=== PATIENT | male | born 1945 | race Caucasian/White ===

== ENCOUNTER → 2016-10-18 | Outpatient (CLI) | payer MEDICARE ==
[2016-10-18 12:14] LABS: Appearance,Urine Clear (Clear); Bilirubin,Urine Negative (Negative); Glucose,Urine (UA) 4+ (Negative); Ketones,Urine Negative (Negative); Leukocyte Esterase,Urine Negative (Negative); Nitrite,Urine Negative (Negative); PH, Urine 5.5 (5.0-8.0); Protein,Urine Trace (Negative); Specific Gravity,Urine 1.012 (1.001-1.035); UA Billing (MACRO vs. MICRO) CHEM; Urobilinogen,Urine <2.0 mg/dL (<2.0)
[2016-10-18 12:22] LABS: Anisocytosis Slight; Basophils % (A) 1 %; CH 22.5; CHCM 31.5; Eosinophils # (A) 0.2 k/uL (0-0.7); Eosinophils % (A) 3 %; HCT 50.5 % (39.0-53.0); HDW 4.24; HGB 15.4 gm/dL (13.0-17.5); Hypochromasia Marked; Luc # (Auto) 0.21; Luc % (Auto) 3; Lymphocytes # (A) 0.8 k/uL (1.0-4.8); Lymphocytes % (A) 12 %; MCH 22.1 pg (25.0-35.0); MCHC 30.5 g/dL (31.0-37.0); MCV 72.4 fL (80.0-100.0); Mean Platelet Volume 7.6; Microcytosis Moderate; Monocytes # (A) 0.2 k/uL (0-1.0); Monocytes % (A) 3 %; Neutrophils # (A) 5.4 k/uL (1.3-7.7); Neutrophils % (A) 78 %; Poikilocytosis Moderate; RBC 6.98 m/uL (4.30-5.90); RDW 18.6 % (11.5-15.5); WBC 6.9 k/uL (3.8-10.6); WBC (Perox) 6.97
[2016-10-18 13:06] LABS: Calcium 9.8 mg/dL (8.4-10.2); Magnesium 1.5 mg/dL (1.6-2.3); Phosphorous 3.4 mg/dL (2.5-4.5); Potassium 4.8 mmol/L (3.5-5.1); Uric Acid 5.5 mg/dL (3.5-8.5)
[2016-10-18 13:15] LABS: % Iron Saturation 9.7 % (20-50)
== END ==
LOC: LABWHC1 11:37
PROVIDERS: ATTEND Internal Medicine Nephrology
DX: N18.3 Chronic kidney disease, stage 3 (moderate) (principal); E55.9 Vitamin D deficiency, unspecified; D64.9 Anemia, unspecified; M10.9 Gout, unspecified; N39.0 Urinary tract infection, site not specified
CPT/HCPCS: 36415; 80048; 81003; 82306; 82728; 83540; 83550; 83735; 83970; 84100; 84550; 85025

== ENCOUNTER → 2017-02-19 | Outpatient (CLI) | payer MEDICARE ==
[2017-02-19 14:22] LABS: Appearance,Urine Clear (Clear); Bilirubin,Urine Negative (Negative); Glucose,Urine (UA) 4+ (Negative); Ketones,Urine Negative (Negative); Leukocyte Esterase,Urine Negative (Negative); Nitrite,Urine Negative (Negative); PH, Urine 5.5 (5.0-8.0); Protein,Urine Negative (Negative); Specific Gravity,Urine 1.007 (1.001-1.035); UA Billing (MACRO vs. MICRO) CHEM; Urobilinogen,Urine <2.0 mg/dL (<2.0)
[2017-02-19 14:51] LABS: Anisocytosis Slight; Basophils % (A) 1 %; CH 23.7; CHCM 31.5; Eosinophils # (A) 0.2 k/uL (0-0.7); Eosinophils % (A) 4 %; HCT 45.2 % (39.0-53.0); HDW 3.97; HGB 13.8 gm/dL (13.0-17.5); Hypochromasia Moderate; Luc # (Auto) 0.07; Luc % (Auto) 2; Lymphocytes # (A) 0.8 k/uL (1.0-4.8); Lymphocytes % (A) 17 %; MCH 23.3 pg (25.0-35.0); MCHC 30.6 g/dL (31.0-37.0); Mean Platelet Volume 7.8; Microcytosis Moderate; Monocytes # (A) 0.2 k/uL (0-1.0); Monocytes % (A) 4 %; Neutrophils # (A) 3.4 k/uL (1.3-7.7); Neutrophils % (A) 73 %; Poikilocytosis Slight; RBC 5.95 m/uL (4.30-5.90); RDW 19.1 % (11.5-15.5); WBC 4.6 k/uL (3.8-10.6); WBC (Perox) 4.77
[2017-02-19 15:40] LABS: Calcium 9.2 mg/dL (8.4-10.2); Magnesium 1.4 mg/dL (1.6-2.3); Phosphorous 2.4 mg/dL (2.5-4.5); Potassium 4.5 mmol/L (3.5-5.1); Uric Acid 5.3 mg/dL (3.5-8.5)
== END | disposition home or self-care (01) ==
LOC: LABWHC1 13:51
PROVIDERS: ATTEND Internal Medicine Nephrology
DX: E21.3 Hyperparathyroidism, unspecified (principal); N39.0 Urinary tract infection, site not specified; M10.9 Gout, unspecified; D63.1 Anemia in chronic kidney disease; N18.3 Chronic kidney disease, stage 3 (moderate)
CPT/HCPCS: 36415; 80048; 81003; 82040; 82306; 82728; 83540; 83550; 83735; 83970; 84100; 84550; 85025

== ENCOUNTER 2017-03-07 22:23 | Emergency (ER) | payer MEDICARE ==
[2017-03-08] MEDS ORDERED: LIDOCAINE 1%-EPI 1:100,000 20 ML VIAL SQ STA (01:17)
[2017-03-08] MEDS ORDERED: LIDOCAINE/EPINEPHR/TETRACAINE 5 ML BOTTLE TOPICAL ONE (02:08)
--- NOTE | 2017-03-08 02:08 | ED ---
ENT HPI - General Chief complaint: Dental/Oral Stated complaint: dental extraction/mouth still bleeding Time Seen by Provider: 03/08/17 00:36 Source: patient Mode of arrival: ambulatory Limitations: no limitations - History of Present Illness Initial comments: Patient presents with a chief complaint oral bleeding. The patient had dental surgery today where he had tooth 19 pulled secondary to a crack in his tooth. Patient states that the surgery went well, though he has been oozing blood from his gums since that time. He was told to pack it with gauze though he is still experiencing excess blood. Patient denies pain at this time. He has no other complaints. - Related Data Allergies Allergy/AdvReac Type Severity Reaction Status Date / Time No Known Allergies Allergy Verified 03/07/17 22:46 Review of Systems ROS Statement: Those systems with pertinent positive or pertinent negative responses have been documented in the HPI. ROS Other: All systems not noted in ROS Statement are negative. Constitutional: Denies: fever, chills Eyes: Denies: vision change ENT: Denies: ear pain, throat pain Respiratory: Denies: cough, dyspnea Cardiovascular: Denies: chest pain, palpitations Endocrine: Denies: fatigue Gastrointestinal: Denies: abdominal pain, nausea, vomiting Genitourinary: Denies: dysuria Musculoskeletal: Denies: back pain Skin: Denies: rash Neurological: Denies: headache Past Medical History Past Medical History: Diabetes Mellitus, Hyperlipidemia, Hypertension, Thyroid Disorder History of Any Multi-Drug Resistant Organisms: None Reported Past Surgical History: Cholecystectomy Additional Past Surgical History / Comment(s): prostate, kidney stone, bladder Past Psychological History: No Psychological Hx Reported Smoking Status: Never smoker Past Alcohol Use History: None Reported Past Drug Use History: None Reported General Exam Limitations: no limitations General appearance: alert, in no apparent distress Head exam: Present: atraumatic, normocephalic Eye exam: Present: normal appearance, PERRL ENT exam: Present: other (There is blood in the oropharynx. Tooth 19 is surgically removed. There is bruising from that gum. ENT exam is otherwise negative.) Neck exam: Present: normal inspection Respiratory exam: Present: normal lung sounds bilaterally. Absent: respiratory distress, wheezes Cardiovascular Exam: Present: regular rate, normal rhythm, normal heart sounds GI/Abdominal exam: Present: soft. Absent: distended, tenderness Rectal exam: Present: deferred Extremities exam: Present: normal inspection Back exam: Present: normal inspection Neurological exam: Present: alert, oriented X3, normal gait Psychiatric exam: Present: normal affect, normal mood Skin exam: Present: warm, dry, intact Course Vital Signs 03/07/17 22:44 Temperature 98.9 F Pulse Rate 90 Respiratory 18 Rate Blood Pressure 152/85 O2 Sat by Pulse 99 Oximetry Medical Decision Making - Medical Decision Making Patient presents with a chief complaint of oral bleeding. He recently had surgery, and is oozing from the gums. Patient has tried to pack it with gauze though he has not had successful hemostasis. We'll treat the patient with lidocaine with epinephrine on gauze. Patient was instructed that regard should be packed tightly, and that he should leave it in place for at least 20 minutes. 15 minutes after application of lidocaine and epinephrine, hemostasis was achieved. Patient is no longer bleeding from the gums. He is stable for discharge. He was instructed on further management at home. He was given exclusive instructions on signs and symptoms that should prompt return visit to the emergency department. Disposition Clinical Impression: Surgical wound hemorrhage after dental procedure Disposition: HOME SELF-CARE Condition: Good Referrals: Abhijeet Tubbs DO [Primary Care Provider] - 1-2 days
[2017-03-08 02:29] VITALS: BP 143/77; PULSE 95; RESP 16; TEMP 98.4
== END 2017-03-08 02:32 | disposition home or self-care (01) ==
LOC: EC 22:23
DX: K91.840 Postprocedural hemorrhage of a digestive system organ or structure following a digestive system procedure (principal); Y83.8 Other surgical procedures as the cause of abnormal reaction of the patient, or of later complication, without mention of misadventure at the time of the procedure
CPT/HCPCS: 99283

== ENCOUNTER → 2017-10-28 | Outpatient (CLI) | payer MEDICARE ==
[2017-10-28 14:41] LABS: Appearance,Urine Clear (Clear); Bilirubin,Urine Negative (Negative); Blood,Urine Negative (Negative); Color,Urine Yellow; Glucose,Urine (UA) 4+ (Negative); Ketones,Urine Negative (Negative); Leukocyte Esterase,Urine Negative (Negative); Nitrite,Urine Negative (Negative); PH, Urine 5.5 (5.0-8.0); Protein,Urine Negative (Negative); Specific Gravity,Urine 1.017 (1.001-1.035)
[2017-10-28 14:56] LABS: Anisocytosis Slight; Basophils % (A) 1 %; Eosinophils # (A) 0.3 k/uL (0-0.7); Eosinophils % (A) 7 %; HCT 43.7 % (39.0-53.0); HGB 13.7 gm/dL (13.0-17.5); Hypochromasia Moderate; Lymphocytes # (A) 0.8 k/uL (1.0-4.8); Lymphocytes % (A) 18 %; MCH 23.1 pg (25.0-35.0); MCHC 31.2 g/dL (31.0-37.0); MCV 73.8 fL (80.0-100.0); Mean Platelet Volume 8.8; Microcytosis Moderate; Monocytes # (A) 0.2 k/uL (0-1.0); Monocytes % (A) 4 %; Neutrophils # (A) 2.8 k/uL (1.3-7.7); Neutrophils % (A) 68 %; Platelet Count 111 k/uL (150-450); Poikilocytosis Slight; RBC 5.92 m/uL (4.30-5.90); RDW 17.5 % (11.5-15.5); WBC 4.1 k/uL (3.8-10.6)
[2017-10-28 15:11] LABS: Calcium 9.4 mg/dL (8.4-10.2); Magnesium 1.4 mg/dL (1.6-2.3); Phosphorus 2.9 mg/dL (2.5-4.5); Potassium 4.9 mmol/L (3.5-5.1); Uric Acid 5.1 mg/dL (3.5-8.5)
[2017-10-29 00:22] LABS: Iron Saturation 9.59 (15.00-50.00)
[2017-10-29 00:43] LABS: Parathyroid Hormone Intact 46.5 pg/mL (14.0-72.0)
== END | disposition home or self-care (01) ==
LOC: LABWHC1 14:06
PROVIDERS: ATTEND Nurse Practitioner Family
DX: N18.4 Chronic kidney disease, stage 4 (severe) (principal); D63.1 Anemia in chronic kidney disease; E55.9 Vitamin D deficiency, unspecified; E21.3 Hyperparathyroidism, unspecified; M10.9 Gout, unspecified; N39.0 Urinary tract infection, site not specified
CPT/HCPCS: 36415; 80048; 81003; 82728; 83540; 83550; 83735; 83970; 84100; 84550; 85025

== ENCOUNTER → 2018-03-03 | Outpatient (CLI) | payer MEDICARE ==
[2018-03-03 14:13] LABS: Calcium 9.3 mg/dL (8.4-10.2); Magnesium 1.5 mg/dL (1.6-2.3); Phosphorus 3.2 mg/dL (2.5-4.5); Potassium 5.1 mmol/L (3.5-5.1); Uric Acid 5.5 mg/dL (3.5-8.5)
[2018-03-03 15:32] LABS: Anisocytosis Slight; Basophils % (A) 1 %; Eosinophils # (A) 0.2 k/uL (0-0.7); Eosinophils % (A) 5 %; HCT 43.2 % (39.0-53.0); HGB 13.5 gm/dL (13.0-17.5); Hypochromasia Slight; Lymphocytes # (A) 0.8 k/uL (1.0-4.8); Lymphocytes % (A) 20 %; MCH 24.6 pg (25.0-35.0); MCHC 31.4 g/dL (31.0-37.0); MCV 78.5 fL (80.0-100.0); Mean Platelet Volume 8.9; Microcytosis Slight; Monocytes # (A) 0.3 k/uL (0-1.0); Monocytes % (A) 7 %; Neutrophils # (A) 2.6 k/uL (1.3-7.7); Neutrophils % (A) 66 %; Poikilocytosis Slight
[2018-03-03 15:38] LABS: Appearance,Urine Clear (Clear); Bilirubin,Urine Negative (Negative); Blood,Urine Negative (Negative); Color,Urine Yellow; Glucose,Urine (UA) 1+ (Negative); Ketones,Urine Negative (Negative); Leukocyte Esterase,Urine Negative (Negative); Nitrite,Urine Negative (Negative); PH, Urine 5.5 (5.0-8.0); Protein,Urine Negative (Negative); Specific Gravity,Urine 1.019 (1.001-1.035); Urobilinogen,Urine <2.0 mg/dL (<2.0)
[2018-03-03 16:02] LABS: Platelet Count 99 k/uL (150-450)
[2018-03-03 18:26] LABS: Iron Saturation 12.94 (15.00-50.00); Parathyroid Hormone Intact 45.8 pg/mL (14.0-72.0)
[2018-03-03 18:27] LABS: Vitamin D 25 Hydroxy 43.6 ng/mL (30.0-100.0)
== END | disposition home or self-care (01) ==
LOC: LABWHC1 13:23
PROVIDERS: ATTEND Nurse Practitioner Family
DX: N18.3 Chronic kidney disease, stage 3 (moderate) (principal); D63.1 Anemia in chronic kidney disease; E21.3 Hyperparathyroidism, unspecified; M10.9 Gout, unspecified; N39.0 Urinary tract infection, site not specified; E55.9 Vitamin D deficiency, unspecified
CPT/HCPCS: 36415; 80048; 81003; 82306; 82728; 83540; 83550; 83735; 83970; 84100; 84550; 85025

== ENCOUNTER → 2018-05-28 | Outpatient (CLI) | payer MEDICARE ==
[2018-05-28 15:25] LABS: Anisocytosis Slight; HCT 43.7 % (39.0-53.0); HGB 13.5 gm/dL (13.0-17.5); Hypochromasia Slight; MCH 25.1 pg (25.0-35.0); MCHC 30.9 g/dL (31.0-37.0); MCV 81.1 fL (80.0-100.0); Mean Platelet Volume 8.6; Platelet Count 118 k/uL (150-450); RBC 5.39 m/uL (4.30-5.90); RDW 17.2 % (11.5-15.5); WBC 5.2 k/uL (3.8-10.6)
[2018-05-28 15:30] LABS: Potassium 5.1 mmol/L (3.5-5.1)
== END | disposition home or self-care (01) ==
LOC: LABPAT 14:45
PROVIDERS: ATTEND Internal Medicine Interventional Cardiology
DX: Z01.812 Encounter for preprocedural laboratory examination (principal); I10 Essential (primary) hypertension; E78.2 Mixed hyperlipidemia; R07.9 Chest pain, unspecified
CPT/HCPCS: 36415; 80051; 82565; 84520; 85027

== ENCOUNTER 2018-06-12 09:18 | Day surgery (SDC) | payer MEDICARE ==
[2018-06-09 11:18] VITALS: BMI 27.1
[~2018-06-12 09:18] MED LIST: ALPRAZolam 0.25 MG TAB PO PRN; ASPIRIN 325 MG TAB PO ONE; SODIUM CHLORIDE 0.9% 1,000 ML IV SCH; SODIUM CHLORIDE 0.9% 1,000 ML in EMPTY BAG 1 BAG IV ONE
[2018-06-12 10:49] LABS: Glucose,Whole Blood 194 mg/dL (75-99)
[2018-06-12] MEDS ORDERED: VERAPAMIL 2.5 MG/ML 2 ML AMP ONE ×2 (12:04→12:14)
[2018-06-12] MEDS ORDERED: LIDOCAINE 1% INJ 10MG/ML (20 ML MDV) ONE (12:04)
[2018-06-12] MEDS ORDERED: HEPARIN SODIUM,PORCINE 30 ML 30 ML ONE (12:13)
[2018-06-12] MEDS ORDERED: HEPARIN SODIUM 1,000 UN/ML (10ML VL) ONE (12:14)
[2018-06-12] MEDS ORDERED: fentaNYL (PF) 50 MCG/ML 2 ML AMP ONE (12:14)
[2018-06-12] MEDS ORDERED: LIDOCAINE 1% INJ 10MG/ML (20 ML MDV) SQ ONE (12:34)
[2018-06-12] MEDS ORDERED: fentaNYL (PF) 50 MCG/ML 2 ML AMP IVP ONE (12:34)
[2018-06-12] MEDS ORDERED: LIDOCAINE 2% INJ 20 MG/ML SQ ONE (12:48)
[2018-06-12] MEDS ORDERED: IOPAMIDOL-370 125ML BTL INJ ONE (13:01)
[2018-06-12] MEDS ORDERED: FAMOTIDINE 20 MG TAB PO PRN (13:20)
[2018-06-12] MEDS ORDERED: RX INFO: IV CONTRAST WAS GIVEN 1 EACH MISC MISCELLANE PRN (13:20)
[2018-06-12] MEDS ORDERED: SODIUM CHLORIDE 0.9% 1,000 ML IV SCH (13:30)
[2018-06-12 15:22] VITALS: RESP 18
[2018-06-12 17:23] LABS: Glucose,Whole Blood 163 mg/dL (75-99)
[2018-06-12 20:26] VITALS: BP 122/71; PULSE 72; TEMP 98.5
--- NOTE | 2018-06-12 20:48 | CC ---
CARDIAC CATHETERIZATION REPORT Mr. De León is a 72-year-old male with a known history of hypertension, hyperlipidemia, and diabetes mellitus who has been complaining of exertional chest discomfort of new onset. His discomfort improved after the addition of nitrate. In view of his multiple risk factors and his presentation, recommendation made regarding cardiac catheterization. The procedures, risks and complications were discussed with the patient who is in full understanding and agreement. PROCEDURE: Patient was brought to the wharf labourer in a fasting semisedated state after receiving fentanyl and Benadryl and achieving moderate conscious sedated state. Using Xylocaine anesthesia and Seldinger technique, the right radial artery was cannulated but there was severe spasm that prevented the advancement of the wire. At that point, using Xylocaine anesthesia and Seldinger technique a 6-Chadian sheath was introduced in the right femoral artery. Selective right and left coronary angiography performed using 6- Chadian 4 bend right and left Jose catheter. Multiple views of coronary artery including hemiaxial views were obtained. Following that, a 6-Chadian tight pigtail catheter was introduced in the left ventricle and pressures were calculated. Following that, catheter and sheath were removed. Hemostasis was obtained with compression of the right groin. There were no immediate complication patient is returned to his room in stable condition. FINDINGS: FLUOROSCOPY: There was mild calcification involving the left anterior descending artery. LEFT MAIN: This is a large-sized vessel trifurcating into left circumflex, left descending artery and ramus intermedius. The left main coronary artery has no evidence of high-grade stenosis. LEFT ANTERIOR DESCENDING ARTERY: This is a large-sized vessel reaching toward the apex with a wrap around the apex segment giving rise to a moderately sized diagonal branch in mid segment. The diagonal branch shortly after the takeoff has a 30% to 40% plaque. The rest of the vessel has no high-grade stenosis. LEFT CIRCUMFLEX: This is a codominant vessel large in caliber giving rise to 2 small obtuse marginal branches distally giving rise to a left PDA and PLV. The left circumflex has no evidence of high-grade stenosis. RAMUS INTERMEDIUS: This is a large-sized vessel reaching to the apical lateral wall. The ramus intermedius has no evidence of high-grade stenosis. RIGHT CORONARY ARTERY: This is a moderately-sized vessel codominant, giving rise to a right PDA. The right coronary artery after the takeoff of the acute marginal branch has a 30% plaque. The rest of the vessel has no high-grade stenosis. LEFT VENTRICULOGRAM: The left ventriculogram was not performed. HEMODYNAMICS: There was no gradient across the aortic valve. The left ventricle end- diastolic pressure was 16-20 mmHg. CONCLUSION: 1. Mildly calcified left anterior descending artery. 2. Mild to moderate coronary disease involving the diagonal branch and the LAD. RECOMMENDATION: In view of finding anatomy, I recommend continue medical therapy with aggressive coronary risk modifications that have been initiated. Those findings and recommendation were discussed with the patient and his family who are in full understanding and agreement. DURATION PROCEDURE: 30 minutes. MMODL / IJN: [id number] /
[2018-06-12] MEDS ORDERED: GLIMEPIRIDE 4 MG TAB PO SCH (21:00)
[2018-06-12] MEDS ORDERED: amLODIPine 5 MG TAB PO SCH (21:00)
[2018-06-13] MEDS ORDERED: LEVOTHYROXINE 100 MCG TAB PO SCH (06:30)
[2018-06-13] MEDS ORDERED: ATORVASTATIN 40 MG TAB PO SCH (09:00)
[2018-06-13] MEDS ORDERED: ATENOLOL 25 MG TAB PO SCH (09:00)
[2018-06-13] MEDS ORDERED: ISOSORBIDE MONONITRATE ER 30 MG TAB.ER.24H PO SCH (09:00)
[2018-06-13] MEDS ORDERED: MAGNESIUM OXIDE 400 MG TAB PO SCH (09:00)
[2018-06-13] MEDS ORDERED: ASPIRIN 81 MG PO SCH (09:00)
[2018-06-18] MEDS ORDERED: [UNRECOGNIZED DRUG - OTHER] IJ SCH (09:00)
== END 2018-06-12 20:25 | disposition home or self-care (01) ==
LOC: CATHCVL 09:18 → 1SOBS 14:44 → CATHCVL 20:25
PROVIDERS: ATTEND Internal Medicine Interventional Cardiology
DX: I25.110 Atherosclerotic heart disease of native coronary artery with unstable angina pectoris (principal); I25.84 Coronary atherosclerosis due to calcified coronary lesion; I10 Essential (primary) hypertension; Z82.49 Family history of ischemic heart disease and other diseases of the circulatory system; E78.2 Mixed hyperlipidemia; E78.00 Pure hypercholesterolemia, unspecified; I12.9 Hypertensive chronic kidney disease with stage 1 through stage 4 chronic kidney disease, or unspecified chronic kidney disease; E11.22 Type 2 diabetes mellitus with diabetic chronic kidney disease; N18.3 Chronic kidney disease, stage 3 (moderate); Z79.84 Long term (current) use of oral hypoglycemic drugs
CPT/HCPCS: 93458; C1894 ×2; C1769; J2001 ×2; J3010; Q9967

== ENCOUNTER → 2018-09-11 | Outpatient (CLI) | payer MEDICARE ==
[2018-09-11 19:58] LABS: Albumin 4.4 g/dL (3.80-4.90); Albumin/Globulin Ratio 2.1 (1.60-3.17); Anion Gap 12.8 mmol/L (4.00-12.00); Calcium 9.8 mg/dL (8.7-10.3); Carbon Dioxide 23.2 mmol/L (21.6-31.8); Globulin 2.1 g/dL (1.6-3.3); LDL Cholesterol,Calculated 75.8 mg/dL (0.0-131.0); Potassium 5.1 mmol/L (3.5-5.5); Total Bilirubin 1.5 mg/dL (0.2-1.2); Total Protein 6.5 g/dL (6.2-8.2); VLDL Calculation 31.2 mg/dL (5.00-40.00)
== END | disposition home or self-care (01) ==
LOC: LABWHC1 13:21
PROVIDERS: ATTEND Internal Medicine Interventional Cardiology
DX: E78.2 Mixed hyperlipidemia (principal)
CPT/HCPCS: 36415; 80053; 80061

== ENCOUNTER → 2019-03-13 | Outpatient (CLI) | payer MEDICARE ==
[2019-03-13 18:58] LABS: LDL Cholesterol,Calculated 75.6 mg/dL (0.0-131.0); VLDL Calculation 19.4 mg/dL (5.00-40.00)
== END | disposition home or self-care (01) ==
LOC: LABWHC1 12:57
PROVIDERS: ATTEND Nurse Practitioner Adult Health
DX: E78.2 Mixed hyperlipidemia (principal)
CPT/HCPCS: 36415; 80061; 84450; 84460

== ENCOUNTER → 2020-03-08 | Outpatient (CLI) | payer MEDICARE ==
[2020-03-08 16:19] LABS: African American GFR (CKD) 45.4 (60.0-200.0); Albumin 4.6 g/dL (3.80-4.90); Anion Gap 10.4 mmol/L (4.00-12.00); Calcium 9.5 mg/dL (8.7-10.3); Carbon Dioxide 23.6 mmol/L (21.6-31.8); Chol/HDL Ratio 3.54; Globulin 2.3 g/dL (1.6-3.3); Non-African American GFR(CKD) 39.1 (60.0-200.0); Potassium 4.1 mmol/L (3.5-5.5); Total Protein 6.9 g/dL (6.2-8.2)
== END | disposition home or self-care (01) ==
LOC: LABWHC1 10:07
PROVIDERS: ATTEND Internal Medicine Interventional Cardiology
DX: E78.2 Mixed hyperlipidemia (principal)
CPT/HCPCS: 36415; 80053; 80061

== ENCOUNTER → 2020-09-08 | Outpatient (CLI) | payer MEDICARE ==
[2020-09-08 20:01] LABS: Chol/HDL Ratio 3.83
== END | disposition home or self-care (01) ==
LOC: LABWHC1 13:29
PROVIDERS: ATTEND Nurse Practitioner Adult Health
DX: E78.2 Mixed hyperlipidemia (principal)
CPT/HCPCS: 36415; 80061; 84450; 84460

== ENCOUNTER → 2020-11-03 | Outpatient (CLI) | payer MEDICARE ==
[2020-11-03 13:51] LABS: Appearance,Urine Clear (Clear); Bilirubin,Urine Negative (Negative); Blood,Urine Negative (Negative); Color,Urine Yellow; Glucose,Urine (UA) Negative (Negative); Ketones,Urine Negative (Negative); Leukocyte Esterase,Urine Negative (Negative); Mucus,Urine Rare /hpf; Nitrite,Urine Negative (Negative); PH, Urine 5.5 (5.0-8.0); Protein,Urine 1+ (Negative); RBC,Urine 1 /hpf (0-5); Specific Gravity,Urine 1.019 (1.001-1.035); Urobilinogen,Urine <2.0 mg/dL (<2.0); WBC,Urine 2 /hpf (0-5)
[2020-11-03 17:28] LABS: Creatinine,Urine Random 367.2 mg/dL; Protein/Creatinine Ratio,Urine 0.06
[2020-11-03 22:15] LABS: % Iron Saturation 21.66 (15.00-50.00); Albumin 4.4 g/dL (3.80-4.90); Anion Gap 9.4 mmol/L (4.00-12.00); BUN/Creat Ratio 8.33 Ratio (12.00-20.00); Calcium 9.4 mg/dL (8.7-10.3); Carbon Dioxide 23.6 mmol/L (21.6-31.8); Magnesium 1.4 mg/dL (1.5-2.4); Non-African American GFR(CKD) 36.3 (60.0-200.0); Potassium 4.5 mmol/L (3.5-5.5); Uric Acid 5.1 mg/dL (3.7-8.7)
[2020-11-03 22:16] LABS: Basophils # (A) 0.02 X 10*3/uL (0.00-0.10); Basophils % (A) 0.6 %; Crenated RBC 2+; Eosinophils # (A) 0.23 X 10*3/uL (0.04-0.35); Eosinophils % (A) 6.4 %; HCT 42.4 % (39.6-50.0); HGB 13.8 g/dL (13.0-17.0); Lymphocytes # (A) 0.79 X 10*3/uL (0.90-5.00); Lymphocytes % (A) 21.9 %; MCH 27.8 pg (27.0-32.0); MCHC 32.5 g/dL (32.0-37.0); MCV 85.3 fL (80.0-97.0); Mean Platelet Volume 12.3 fL (9.5-12.2); Monocytes # (A) 0.32 X 10*3/uL (0.20-1.00); Monocytes % (A) 8.9 %; Neutrophils # (A) 2.24 X 10*3/uL (1.80-7.70); Neutrophils % (A) 61.9 %; Platelet Count 99 X 10*3/uL (140-440); RBC 4.97 X 10*6/uL (4.40-5.60); RDW 14.4 % (11.5-14.5); WBC 3.61 X 10*3/uL (4.50-10.00)
[2020-11-03 22:23] LABS: Ferritin 42.4 ng/mL (22.0-322.0)
== END | disposition home or self-care (01) ==
LOC: LABWHC1 12:48
PROVIDERS: ATTEND Internal Medicine Nephrology
DX: N18.30 Chronic kidney disease, stage 3 unspecified (principal); E83.39 Other disorders of phosphorus metabolism; M10.9 Gout, unspecified; N39.0 Urinary tract infection, site not specified; D64.9 Anemia, unspecified; R80.9 Proteinuria, unspecified
CPT/HCPCS: 36415; 80048; 81001; 82040; 82306; 82570; 82728; 83540; 83550; 83735; 83970; 84100; 84156; 84550; 85025

== ENCOUNTER → 2020-11-17 | Outpatient (CLI) | payer MEDICARE ==
--- NOTE | 2020-11-18 06:50 | US ---
EXAMINATION TYPE: US kidneys/renal and bladder DATE OF EXAM: 11/17/2020 COMPARISON: Renal ultrasound November 13, 2017 CLINICAL HISTORY: N18.3 chronic kidney Disease. abn labs EXAM MEASUREMENTS: Right Kidney: 10.6 x 4.4 x 5.3 cm Left Kidney: 9.4 x 3.6 x 3.9 cm Right Kidney: Lower pole simple cystic lesion - 2.8 x 2.8 x 2.7 cm. Mid lateral simple cystic lesion = 2.2 x 2.2 x 2.1 cm. Left Kidney: Lower pole simple cystic lesion - 2.2 x 2.1 x 2.2 cm Bladder: mildly distended Bilateral Jets not seen Some increased cortical echogenicity bilaterally. Persistent 2.8 cm thin-walled cyst lower pole of th e right kidney. Additional 2.2 cm thin-walled cyst with low-level right kidney on current study not c learly seen on prior.. Bladder poorly distended. Technologist leung 2.1 cm thin-walled cyst lower chelle e of the left kidney stable from prior. IMPRESSION: Findings consistent with chronic medical renal disease redemonstrated. No hydronephrosis noted bilaterally.
== END | disposition home or self-care (01) ==
LOC: RADUSWWP 15:25
PROVIDERS: ATTEND Internal Medicine Nephrology
DX: N18.30 Chronic kidney disease, stage 3 unspecified (principal)
CPT/HCPCS: 76770

== ENCOUNTER → 2021-03-09 | Outpatient (CLI) | payer MEDICARE ==
[2021-03-10 14:01] LABS: Albumin 4.5 g/dL (3.80-4.90); Albumin/Globulin Ratio 1.8 (1.60-3.17); Anion Gap 12.1 mmol/L (4.00-12.00); BUN/Creat Ratio 13.33 Ratio (12.00-20.00); Calcium 9.7 mg/dL (8.7-10.3); Carbon Dioxide 21.9 mmol/L (21.6-31.8); Chol/HDL Ratio 3.88; Globulin 2.5 g/dL (1.6-3.3); Non-African American GFR(CKD) 36.3 (60.0-200.0); Potassium 5.2 mmol/L (3.5-5.5); Total Bilirubin 0.9 mg/dL (0.3-1.2)
== END | disposition home or self-care (01) ==
LOC: LABWHC1 15:42
PROVIDERS: ATTEND Internal Medicine Interventional Cardiology
DX: E78.2 Mixed hyperlipidemia (principal)
CPT/HCPCS: 36415; 80053; 80061

== ENCOUNTER → 2021-06-29 | Outpatient (CLI) | payer MEDICARE ==
[2021-06-29 15:31] LABS: Appearance,Urine Clear (Clear); Bilirubin,Urine Negative (Negative); Blood,Urine Negative (Negative); Color,Urine Yellow; Glucose,Urine (UA) Negative (Negative); Ketones,Urine Negative (Negative); Leukocyte Esterase,Urine Negative (Negative); Nitrite,Urine Negative (Negative); PH, Urine 5.5 (5.0-8.0); Protein,Urine Negative (Negative); Specific Gravity,Urine 1.014 (1.001-1.035); Urobilinogen,Urine <2.0 mg/dL (<2.0)
[2021-06-29 15:36] LABS: Creatinine,Urine Random 198.2 mg/dL; Protein/Creatinine Ratio,Urine 0.04
[2021-06-29 23:38] LABS: Basophils # (A) 0.02 X 10*3/uL (0.00-0.10); Basophils % (A) 0.5 %; Eosinophils % (A) 4.7 %; HCT 38.4 % (39.6-50.0); HGB 12.5 g/dL (13.0-17.0); Lymphocytes % (A) 16.5 %; MCHC 32.6 g/dL (32.0-37.0); MCV 85.9 fL (80.0-97.0); Mean Platelet Volume 12.2 fL (9.5-12.2); Monocytes # (A) 0.39 X 10*3/uL (0.20-1.00); Monocytes % (A) 9.2 %; Neutrophils # (A) 2.93 X 10*3/uL (1.80-7.70); Neutrophils % (A) 68.9 %; Platelet Count 109 X 10*3/uL (140-440); RBC 4.47 X 10*6/uL (4.40-5.60); RDW 13.4 % (11.5-14.5); WBC 4.25 X 10*3/uL (4.50-10.00)
[2021-06-30 06:50] LABS: Albumin 4.4 g/dL (3.8-4.9); BUN/Creat Ratio 7.5 Ratio (12.00-20.00); Blood Urea Nitrogen 16.5 mg/dL (9.0-27.0); Calcium 9.8 mg/dL (8.7-10.3); Ferritin 59.8 ng/mL (22.0-322.0); Non-African American GFR(CKD) 28.5 (60.0-200.0)
[2021-06-30 06:51] LABS: % Iron Saturation 14.78 (15.00-50.00); Magnesium 1.7 mg/dL (1.5-2.4); Phosphorus 2.2 mg/dL (2.4-5.1); Uric Acid 5.2 mg/dL (3.7-8.7)
== END | disposition home or self-care (01) ==
LOC: LABWHC1 14:26
PROVIDERS: ATTEND Nurse Practitioner Family
DX: N18.30 Chronic kidney disease, stage 3 unspecified (principal); E55.9 Vitamin D deficiency, unspecified; E21.3 Hyperparathyroidism, unspecified; M10.9 Gout, unspecified; N39.0 Urinary tract infection, site not specified; D64.9 Anemia, unspecified
CPT/HCPCS: 36415; 80048; 81003; 82040; 82306; 82570; 82728; 83540; 83550; 83735; 83970; 84100; 84156; 84550; 85025

== ENCOUNTER → 2021-07-31 | Outpatient (CLI) | payer MEDICARE ==
[2021-08-01 00:22] LABS: ALT 39 U/L (10-49); AST 27 U/L (14-35); Albumin 4.4 g/dL (3.8-4.9); Alkaline Phosphatase 73 U/L (41-126); BUN/Creat Ratio 8.89 Ratio (12.00-20.00); Blood Urea Nitrogen 17.7 mg/dL (9.0-27.0); Calcium 9.5 mg/dL (8.7-10.3); Carbon Dioxide 22.6 mmol/L (20.0-27.5); Chloride 105 mmol/L (96-109); Chol/HDL Ratio 3.19 Ratio; Globulin 2.3 g/dL (1.6-3.3); Glucose 170 mg/dL (70-110); LDL Cholesterol,Calculated 81.4 mg/dL (0.0-131.0); Non-African American GFR(CKD) 31.9 (60.0-200.0); Potassium 5.6 mmol/L (3.5-5.5); Sodium 137 mmol/L (135-145); Total Protein 6.7 g/dL (6.2-8.2); VLDL Calculation 18.16 mg/dL (5.00-40.00)
== END | disposition home or self-care (01) ==
LOC: LABWHC1 14:05
PROVIDERS: ATTEND Internal Medicine Interventional Cardiology
DX: E78.2 Mixed hyperlipidemia (principal)
CPT/HCPCS: 36415; 80053; 80061

== ENCOUNTER → 2022-02-01 | Outpatient (CLI) | payer MEDICARE ==
[2022-02-01 19:23] LABS: African American GFR (CKD) 29.6 (60.0-200.0); Anion Gap 12.1 mmol/L (10.00-18.00); BUN/Creat Ratio 8.37 Ratio (12.00-20.00); Calcium 9.4 mg/dL (8.7-10.3); Carbon Dioxide 21.7 mmol/L (20.0-27.5); Non-African American GFR(CKD) 25.6 (60.0-200.0); Potassium 5.1 mmol/L (3.5-5.5)
== END | disposition home or self-care (01) ==
LOC: LABWHC1 13:01
PROVIDERS: ATTEND Nurse Practitioner Family
DX: N18.30 Chronic kidney disease, stage 3 unspecified (principal)
CPT/HCPCS: 36415; 80048

== ENCOUNTER → 2022-03-16 | Outpatient (CLI) | payer MEDICARE ==
[2022-03-16 18:46] LABS: ALT 29 U/L (10-49); AST 26 U/L (14-35); African American GFR (CKD) 32.6 (60.0-200.0); Albumin 4.4 g/dL (3.8-4.9); Albumin/Globulin Ratio 1.52 (1.60-3.17); Alkaline Phosphatase 57 U/L (41-126); BUN/Creat Ratio 14.71 Ratio (12.00-20.00); Blood Urea Nitrogen 32.5 mg/dL (9.0-27.0); Calcium 9.7 mg/dL (8.7-10.3); Carbon Dioxide 23.8 mmol/L (20.0-27.5); Chloride 104 mmol/L (96-109); Chol/HDL Ratio 2.87 Ratio; Globulin 2.9 g/dL (1.6-3.3); Glucose 98 mg/dL (70-110); LDL Cholesterol,Calculated 62.6 mg/dL (0.0-131.0); Non-African American GFR(CKD) 28.1 (60.0-200.0); Sodium 137 mmol/L (135-145); Total Protein 7.3 g/dL (6.2-8.2); VLDL Calculation 17.48 mg/dL (5.00-40.00)
== END | disposition home or self-care (01) ==
LOC: LABWHC1 12:54
PROVIDERS: ATTEND Internal Medicine Interventional Cardiology
DX: E78.2 Mixed hyperlipidemia (principal)
CPT/HCPCS: 36415; 80053; 80061

== ENCOUNTER → 2023-03-07 | Outpatient (CLI) | payer MEDICARE ==
--- NOTE | 2023-03-07 14:45 | US ---
EXAMINATION TYPE: US kidneys/renal and bladder DATE OF EXAM: 03/07/2023 COMPARISON: Renal ultrasound 11/17/2020, 11/13/2017 CLINICAL INDICATION: Male, 77 years old with history of N18.3; EXAM MEASUREMENTS: Right Kidney: 11.0 x 4.5 x 4.0 cm Left Kidney: 9.1 x 4.0 x 3.0 cm Right Kidney: cystic area lower pole 2.4 x 2.4 x 3.0 cm. Mid pole 2.1 x 2.3 x 2.0 cm. Left Kidney: Anechoic area mid pole 2.7 x 2.4 x 2.4 cm. Bladder: anechoic Bilateral Jets seen: right only There is no evidence for hydronephrosis at this point in time. No nephrolithiasis is seen. Corticom edullary differentiation is maintained. Thinning of both renal cortices with slightly increased echog enicity. Bilateral simple renal cysts redemonstrated. No masses are identified. The urinary bladder is anechoic. Only the right ureteral jet identified. IMPRESSION: 1. No hydronephrosis or nephrolithiasis. 2. Findings consistent with chronic medical renal disease redemonstrated. 3. Bilateral renal cysts.
== END | disposition home or self-care (01) ==
LOC: RADUSWWP 12:25
PROVIDERS: ATTEND Internal Medicine Nephrology
DX: N18.30 Chronic kidney disease, stage 3 unspecified (principal); N28.1 Cyst of kidney, acquired
CPT/HCPCS: 76770

== ENCOUNTER → 2023-04-09 | Outpatient (CLI) | payer MEDICARE ==
[2023-04-09 16:54] LABS: ALT 31 U/L (10-49); AST 29 U/L (14-35); Chol/HDL Ratio 2.74 Ratio; LDL Cholesterol,Calculated 67.5 mg/dL (0.0-131.0)
== END | disposition home or self-care (01) ==
LOC: LABWHC1 11:56
PROVIDERS: ATTEND Nurse Practitioner Adult Health
DX: E78.2 Mixed hyperlipidemia (principal)
CPT/HCPCS: 36415; 80061; 84450; 84460

== ENCOUNTER → 2023-10-10 | Outpatient (CLI) | payer MEDICARE ==
[2023-10-10 19:04] LABS: ALT 34 U/L (10-49); AST 37 U/L (14-35); Albumin 4.4 g/dL (3.8-4.9); Albumin/Globulin Ratio 1.52 Ratio (1.60-3.17); Alkaline Phosphatase 65 U/L (41-126); BUN/Creat Ratio 11.78 Ratio (12.00-20.00); Blood Urea Nitrogen 27.1 mg/dL (9.0-27.0); Calcium 9.7 mg/dL (8.7-10.3); Carbon Dioxide 22.9 mmol/L (21.6-31.8); Chloride 104 mmol/L (96-109); Chol/HDL Ratio 3.16 Ratio; Globulin 2.9 g/dL (1.6-3.3); Glucose 131 mg/dL (70-110); LDL Cholesterol,Calculated 67.7 mg/dL (0.0-131.0); Potassium 4.7 mmol/L (3.5-5.5); Sodium 139 mmol/L (135-145); Total Bilirubin 0.9 mg/dL (0.3-1.2); Total Protein 7.3 g/dL (6.2-8.2)
== END | disposition home or self-care (01) ==
LOC: LABWHC1 12:37
PROVIDERS: ATTEND Internal Medicine Interventional Cardiology
DX: I10 Essential (primary) hypertension (principal); E78.2 Mixed hyperlipidemia
CPT/HCPCS: 36415; 80053; 80061

== ENCOUNTER → 2024-04-09 | Outpatient (CLI) | payer MEDICARE ==
[2024-04-10 03:07] LABS: ALT 31 U/L (10-49); AST 29 U/L (14-35); Albumin 3.9 g/dL (3.8-4.9); Albumin/Globulin Ratio 1.56 Ratio (1.60-3.17); Alkaline Phosphatase 67 U/L (41-126); Blood Urea Nitrogen 22.3 mg/dL (9.0-27.0); Calcium 9.2 mg/dL (8.7-10.3); Carbon Dioxide 22.9 mmol/L (21.6-31.8); Chloride 106 mmol/L (96-109); Chol/HDL Ratio 2.94 Ratio; Globulin 2.5 g/dL (1.6-3.3); Glucose 134 mg/dL (70-110); LDL Cholesterol,Calculated 57.9 mg/dL (0.0-131.0); Potassium 5.1 mmol/L (3.5-5.5); Sodium 138 mmol/L (135-145); Total Bilirubin 0.7 mg/dL (0.3-1.2); Total Protein 6.4 g/dL (6.2-8.2); VLDL Calculation 18.58 mg/dL (5.00-40.00)
== END | disposition home or self-care (01) ==
LOC: LABWHC1 12:21
PROVIDERS: ATTEND Internal Medicine Interventional Cardiology
DX: E78.2 Mixed hyperlipidemia (principal)
CPT/HCPCS: 36415; 80053; 80061

== ENCOUNTER → 2024-10-01 | Outpatient (CLI) | payer MEDICARE ==
[2024-10-01 15:07] LABS: ALT 37 U/L (10-49); AST 36 U/L (14-35); Chol/HDL Ratio 2.95 Ratio; LDL Cholesterol,Calculated 60.8 mg/dL (0.0-131.0); VLDL Calculation 19.24 mg/dL (5.00-40.00)
== END | disposition home or self-care (01) ==
LOC: LABWHC1 09:19
PROVIDERS: ATTEND Internal Medicine Interventional Cardiology
DX: E78.2 Mixed hyperlipidemia (principal)
CPT/HCPCS: 36415; 80061; 84450; 84460